=== PATIENT | female | born 1975 ===

== ENCOUNTER 2019-06-14 08:48 | Day surgery (SDC) | payer MEDICAID ==
[~2019-06-14] VITALS: Ht 149.9 cm; Wt 65.8 kg
[2019-06-14] VITALS (9 sets, daily range): BP systolic 99–124; BP diastolic 58–72
[2019-06-14] MEDS ORDERED: MULTIVITAMINS1 EAC2 ORAL (09:39)
[2019-06-14] MEDS ORDERED: Lidocaine 1% MPF 10mg/ml 5ml ONE (10:00)
[2019-06-14] MEDS ORDERED: Propofol 200mg/20ml IV ONE (10:00)
[2019-06-14] MEDS ORDERED: LR 1000ml ONE (10:00)
--- NOTE | 2019-06-14 10:01 | Pre-Procedure Note/Attestation ---
Pre-Procedure Note/Attestation Complete Prior to Procedure Planned Procedure: not applicable Procedure Narrative: colonoscopy Indications for Procedure Pre-Operative Diagnosis: rectal bleed Attestation I attest that I discussed the nature of the procedure; its benefits; risks and complications; and alternatives (and the risks and benefits of such alternatives ), prior to the procedure, with the patient (or the patient's legal installation service representative). I attest that, if there was a reasonable possibility of needing a blood transfusion, the patient (or the patient's legal installation service representative) was given the [facility] standardized written summary, pursuant to the Carlos Enrique Lokesh Blood Safety Act ([place] Health and Safety Code # 1645, as amended). I attest that I re-evaluated the patient just prior to the surgery and that there has been no change in the patient's H&P, except as documented below: Javy Wu MD Jun 14, 2019 10:01
--- NOTE | 2019-06-14 10:02 | Short Stay Surgery H&P ---
History of Present Illness History of Present Illness Chief Complaint rectal bleed HPI Angeline L Hitesh oKlb is a 44 year old female who was admitted on for Rectal Bleed Patient History Allergies: Coded Allergies: No Known Allergies (Unverified , 06/14/19) PAST MEDICAL HISTORY: (1) Gallbladder cancer Medication History Scheduled Multivitamins* (Multivitamins*), 1 TAB ORAL DAILY, (Reported) Review of Systems Cardiovascular: Reports: no symptoms Respiratory: Reports: no symptoms Skeletal: Reports: no symptoms Gastrointestinal: Reports: no symptoms Genitourinary: Reports: no symptoms Neurologic: Reports: no symptoms Endocrine: Reports: no symptoms Hematologic: Reports: no symptoms Physical Exam Vital Signs Last Vital Signs Date Time Temp Pulse Resp B/P (MAP) Pulse Ox O2 Delivery O2 Flow Rate FiO2 06/14/19 09:45 Room Air 06/14/19 09:39 97.4 60 18 108/58 99 Labs Laboratory Tests Test 06/14/19 09:15 Urine HCG, Qualitative Negative (NEGATIVE) Skin: normal HENT: normal Heart: normal Lungs: normal Abdomen: normal Extremities: normal Plan Plan of Care colonoscopy Attestation Are the patient's medical conditions optimized for surgery? Attestation Response: yes Javy Wu MD Jun 14, 2019 10:02
--- NOTE | 2019-06-14 10:30 | Anethesia Preoperative Eval ---
Anesthesia Pre-op PMH/ROS General Date of Evaluation: Jun 14, 2019 Time of Evaluation: 10:00 Anesthesiologist: joe ASA Score: ASA 2 Mallampati Score Class I : Soft palate, uvula, fauces, pillars visible Class II: Soft palate, uvula, fauces visible Class III: Soft palate, base of uvula visible Class IV: Only hard plate visible Mallampati Classification: Class II Surgeon: abena Diagnosis: rectal bleed Surgical Procedure: Colonoscopy Anesthesia History: none Family History: no anesthesia problems Allergies: Coded Allergies: No Known Allergies (Unverified , 06/14/19) Medications: see eMAR Patient NPO?: Yes NPO Date: Jun 14, 2019 NPO Time: 00:01 Past Medical History Cardiovascular: Denies: HTN, CAD, [place], valve dz, arrhythmia, other Pulmonary: Denies: asthma, COPD, [place], other Gastrointestinal/Genitourinary: Denies: GERD, CRI, ESRD, other Neurologic/Psychiatric: Denies: dementia, CVA, depression/anxiety, TIA, other Endocrine: Denies: DM, hypothyroidism, steroids, other HEENT: Denies: cataract (L), cataract (R), glaucoma, UPPER [place] (L), UPPER [place] (R), other Hematology/Immune: Denies: anemia, DVT, bleeding disorder, other Musculoskeletal/Integumentary: Denies: OA, RA, DJD, DDD, edema, other PMH Narrative: rectal bleed Anesthesia Pre-op Phys. Exam Physician Exam Last Vital Signs Date Time Temp Pulse Resp B/P (MAP) Pulse Ox O2 Delivery O2 Flow Rate FiO2 06/14/19 09:45 Room Air 06/14/19 09:39 97.4 60 18 108/58 99 Constitutional: NAD Neurologic: CN 2-12 intact Cardiovascular: RRR Respiratory: CTA Gastrointestinal: S/NT/ND Airway Exam Mallampati Classification 2 Mallampati Score: Class II MO: full ROM: full Dentures: no upper, no lower Anesthesia Pre-op A/P Labs Urine Test Test 06/14/19 09:15 Urine HCG, Qualitative Negative (NEGATIVE) Studies Pre-op Studies: EKG Risk Assessment & Plan Plan: mac Status Change Before Surgery: No Pre-Antibiotics Drug: declined Bessy Torres CRNA Jun 14, 2019 10:30
--- NOTE | 2019-06-14 10:31 | Immediate Post-Op Evaluation ---
Immediate Post-Op Evalulation Immediate Post-Op Evalulation Procedure: colonoscopy Date of Evaluation: Jun 14, 2019 Time of Evaluation: 10:25 IV Fluids: 500 Blood Pressure Systolic: 110 Blood Pressure Diastolic: 65 Pulse Rate: 60 Respiratory Rate: 14 O2 Sat by Pulse Oximetry: 100 Temperature (Fahrenheit): 97.2 Nausea: No Vomiting: No Complications none Patient Status: awake, reacts, patent Hydration Status: adequate Drug: none SegundoriBessy de la cruz CRNA Jun 14, 2019 10:31
--- NOTE | 2019-06-14 10:39 | Endoscopy Procedure Note ---
Endoscopy Procedure Note General Indication for Procedure: rectal bleed Procedures Performed: colonoscopy Operative Findings/Diagnosis: hemorrhoids Specimen: none Pt Tolerated Procedure Well: Yes Estimated Blood Loss: none Anesthesia Anesthesiologist: alysia Anesthesia: MAC Inserted Devices Implant(s) used?: No Quality Quality of Bowel Preparation: Good Did scope reach the cecum?: Yes Was there any complications?: No GI Core Measures 50 yrs or older w/o bx or poly: No 10yrs. F/U recommended: Yes If not recommended, why?: Above average risk 18 years or older w/prev. colo: No Javy Wu MD Jun 14, 2019 10:39
--- NOTE | 2019-06-14 11:45 | 48 Hour Post Anesthesia Eval ---
Post Anesthesia Evaluation Procedure: colonoscopy Date of Evaluation: Jun 14, 2019 Time of Evaluation: 11:45 Blood Pressure Systolic: 109 0: 68 Pulse Rate: 75 Respiratory Rate: 14 O2 Sat by Pulse Oximetry: 98 Airway: patent Nausea: No Vomiting: No Hydration Status: adequate Cardiopulmonary Status: stable Mental Status/LOC: patient returned to baseline Post-Anesthesia Complications: none Follow-up care needed: N/A Bessy Torres CRNA Jun 14, 2019 11:45
--- NOTE | 2019-06-14 15:45 | Procedure Note ---
DATE OF PROCEDURE: 06/14/2019 SURGEON: Javy Wu M.D. PROCEDURE: Colonoscopy. ANESTHESIA: Per GLUING MACHINE ADJUSTER, Bessy Tarrillion. INSTRUMENT: Olympus adult flexible colonoscope. INDICATIONS: Rectal bleeding. REASON FOR PROCEDURE: The procedure, risks, benefits, and possible consequences, including hemorrhage, aspiration, perforation and infection, and alternative treatments, were explained to the patient/legal guardian by Dr. Javy Wu and the patient/legal guardian understood and accepted these risks. PROCEDURE IN DETAIL: After informed consent was obtained and the patient was adequately sedated, first rectal exam was performed, which was positive for internal hemorrhoids. Then, the scope was advanced from the rectum into the cecum then subsequently terminal ileum. Quality of prep was good. The patient had some diffuse diverticula in the left colon, otherwise normal colonoscopy examination. Retroflexion of rectum showed evidence of medium-sized internal hemorrhoids. SUMMARY OF FINDINGS: 1. Scattered diverticulosis in the left colon. 2. Internal hemorrhoids, most probably the source of bleeding. RECOMMENDATIONS: 1. Treat for hemorrhoids. 2. Treat for constipation. 3. Return to clinic p.r.n. I want to thank Dr. Betzaida Romo for this kind referral. Javy Wu M.D. DR: SHOBHA JOB#: [id number] CC: Betzaida Romo M.D.; Fax#: [phone]
== END 2019-06-14 11:25 | disposition home or self-care (01) ==
LOC: GAS 08:48
DX: K62.5 Hemorrhage of anus and rectum (principal); K57.90 Diverticulosis of intestine, part unspecified, without perforation or abscess without bleeding; K64.8 Other hemorrhoids; Z85.89 Personal history of malignant neoplasm of other organs and systems
CPT/HCPCS: 45378; 81025; J2704; Z7512; 94003; 94150